=== PATIENT | male | born 1990 | race Caucasian/White ===

== ENCOUNTER 2020-06-09 11:10 | Day surgery (SDC) | payer OTHER ==
[2020-06-03 13:15] VITALS: BMI 27.3
[2020-06-09] MEDS ORDERED: MIDAZOLAM HCL 2 MG/2 ML SINGLE DOSE VIAL ONE (12:22)
[2020-06-09] MEDS ORDERED: ONDANSETRON 4 MG/2 ML VIAL ONE ×2 (12:22→15:23)
[2020-06-09] MEDS ORDERED: DEXAMETHASONE SOD PHOSPHATE 4 MG/1 ML VIAL ONE (12:22)
[2020-06-09] MEDS ORDERED: LIDOCAINE HCL/PF 2% SDV 5ML VIAL ONE (12:22)
[2020-06-09] MEDS ORDERED: PROPOFOL 20 ML ONE ×2 (12:22→16:16)
[2020-06-09] MEDS ORDERED: BUPIVACAINE HCL/PF 0.25% (2.5MG/ML) 10 ML VIAL ONE (13:19)
[2020-06-09] MEDS ORDERED: ONDANSETRON 4 MG/2 ML VIAL IVPUSH PRN (13:51)
[2020-06-09] MEDS ORDERED: oxyCODONE HCL 5 MG TABLET PO PRN ×2 (13:51)
[2020-06-09] MEDS ORDERED: LACTATED RINGERS SOLUTION 1,000 ML IV SCH (14:00)
[2020-06-09] MEDS ORDERED: BUPIVACAINE HCL/PF 0.25% (2.5MG/ML) 10 ML VIAL IJ ONE (14:20)
[2020-06-09] MEDS ORDERED: KETOROLAC TROMETHAMINE 30 MG/1 ML VIAL ONE (16:03)
[2020-06-09 16:38] VITALS: BP 124/86; PULSE 75; TEMP 97.9
== END 2020-06-09 16:38 | disposition home or self-care (01) ==
LOC: FASU 11:10
PROVIDERS: ATTEND Orthopaedic Surgery Hand Surgery
PROC: 01N54ZZ Release Median Nerve, Percutaneous Endoscopic Approach (ICD-10-PCS; principal; 2020-06-09 13:43)
PROC: 01N40ZZ Release Ulnar Nerve, Open Approach (ICD-10-PCS; 2020-06-09 13:43)
DX: G56.02 Carpal tunnel syndrome, left upper limb (principal); G56.22 Lesion of ulnar nerve, left upper limb
CPT/HCPCS: 94760

== ENCOUNTER 2020-09-15 06:11 | Day surgery (SDC) | payer OTHER ==
[2020-09-08 11:35] VITALS: BMI 27.3
[2020-09-15] MEDS ORDERED: ONDANSETRON 4 MG/2 ML VIAL ONE (07:04)
[2020-09-15] MEDS ORDERED: KETOROLAC TROMETHAMINE 30 MG/1 ML VIAL ONE (07:04)
[2020-09-15] MEDS ORDERED: EPHEDRINE SULFATE/0.9% NACL/PF 50 MG/10 ML SYRINGE NR ONE (07:04)
[2020-09-15] MEDS ORDERED: ceFAZolin SODIUM 1 GM VIAL ONE (07:04)
[2020-09-15] MEDS ORDERED: PROPOFOL 20 ML ONE ×3 (07:04)
[2020-09-15] MEDS ORDERED: SUCCINYLCHOLINE CHLORIDE 200 MG/10 ML SYRINGE ONE (07:04)
[2020-09-15] MEDS ORDERED: DEXAMETHASONE SOD PHOSPHATE 4 MG/1 ML VIAL ONE (07:04)
[2020-09-15] MEDS ORDERED: MIDAZOLAM HCL 2 MG/2 ML SINGLE DOSE VIAL ONE (07:05)
[2020-09-15] MEDS ORDERED: ONDANSETRON 4 MG/2 ML VIAL IVPUSH PRN (07:20)
[2020-09-15] MEDS ORDERED: oxyCODONE HCL 5 MG TABLET PO PRN ×2 (07:20)
[2020-09-15] MEDS ORDERED: LACTATED RINGERS SOLUTION 1,000 ML IV SCH (07:30)
[2020-09-15] MEDS ORDERED: BUPIVACAINE HCL/PF 0.25% (2.5MG/ML) 10 ML VIAL ONE (07:33)
[2020-09-15] MEDS ORDERED: GUM MASTIC/STORAX/MSAL/ALCOHOL 1 DRP DROPSBTL MC ONE (08:13)
[2020-09-15] MEDS ORDERED: BUPIVACAINE HCL/PF 0.25% (2.5MG/ML) 10 ML VIAL IJ ONE (08:24)
[2020-09-15 09:43] VITALS: TEMP 97.8
[2020-09-15 10:23] VITALS: BP 101/65; PULSE 68
== END 2020-09-15 10:25 | disposition home or self-care (01) ==
LOC: FASU 06:11
PROVIDERS: ATTEND Orthopaedic Surgery Hand Surgery
PROC: 01N Peripheral Nervous System, Release (ICD-10-PCS; 2020-09-15)
PROC: 01N54ZZ Release Median Nerve, Percutaneous Endoscopic Approach (ICD-10-PCS; principal; 2020-09-15 07:54)
DX: G56.01 Carpal tunnel syndrome, right upper limb (principal); G56.21 Lesion of ulnar nerve, right upper limb
CPT/HCPCS: 94760